=== PATIENT | female | born 1950 | race Caucasian/White ===

== ENCOUNTER 2016-11-23 17:05 | Emergency (ER) | payer MEDICARE, MEDICAID ==
[2016-11-23 17:18] VITALS: BP 179/67
--- NOTE | 2016-11-23 17:39 | EDM.PDOC ---
ED HPI Trauma - General Chief Complaint: Lower Extremity Injury/Pain Stated Complaint: RIGHT LEG PN, HX OF BLOOD CLOTS Time Seen by Provider: 11/23/16 17:39 Source: Reports: Patient History Limitations: Reports: No limitations - History of Present Illness INITIAL COMMENTS - FREE TEXT/NARRATIVE: 66-year-old female presents to the ED for evaluation of pain pills wounds along the medial aspect of her right leg. Patient suffered trauma to the right leg when she got [place] in early [place]. She had hematoma develop mid medial calf. So probably she developed increased pain in the distribution of the greater saphenous vein with velocities in several areas. They have become more painful and swollen over the last few days. She's been wearing a new lead sleeve that was a right behind her knee and and probably is contributing a little bit to were superficial venous drainage. Chest no chest pain cough or sputum production. Symptom Onset Date: 11/20/16 (Has been having problems with the right leg and varicosities since mid-September of this year) Occurred When: other Occurred Where: home Method of Injury: other (Initial [place] when she could not get out to do yourself out in her leg got twisted in an irregular fashion as she fell.) Severity: moderate Pain/Injury Location: Reports: lower extremity, right Associated Symptoms: Reports: no other symptoms, trouble walking (Aware of pain in her right leg at times.). Denies: abdominal pain, chest pain, confusion, dizziness, headache, lightheadedness, muscle spasms, nausea/vomiting, ringing in ears, seizures, shortness of breath, slurred speech Allergies/ADRs: Allergies Sulfa (Sulfonamide Antibiotics) Allergy (Verified 11/23/16 17:21) Not Listed Home Medications: Ambulatory Orders Atenolol 06/19/15 [Confirmed 06/19/15] Zolpidem Tartrate [Ambien] 06/19/15 [Confirmed 06/19/15] clonazePAM [Clonazepam] 06/19/15 [Confirmed 06/19/15] Norethindrone AC-Eth Estradiol [Jinteli 1 MG-5 MCG] 11/23/16 [Confirmed ] Past Medical History Cardiovascular History: Reports: Blood clots/VTE/DVT, Hypertension Other OB/BYN History: ovaries removed Musculoskeletal History: Reports: Fibromyalgia Psychiatric History: Reports: Anxiety Other Endocrine/Metabolic History: parathyroidectomy - Past Surgical History Female Surgical History: Reports: Oophorectomy Social & Family History - Family History Family Medical History: Noncontributory - Tobacco Use Smoking Status *Q: Never Smoker Second Hand Smoke Exposure: No - Recreational Drug Use Recreational Drug Use: No - Living Situation & Occupation Living situation: Reports: single (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 Denies: Shortness of Breath, Wheezing, Pleuritic Chest Pain, Sputum, Hemoptysis GI/Abdominal: Reports: No symptoms, Decreased appetite. Denies: Abdominal pain , Bloody stool, Constipation Genitourinary: Reports: no symptoms Musculoskeletal: Reports: other (Right lower extremity pain particularly medially along the distribution of the greater saphenous vein. Several spots along the leg are painful to touch.) Skin: Reports: no symptoms Neurological: Reports: No Symptoms Psychiatric: Reports: no symptoms Trauma Exam - Physical Exam Exam: See Below Exam Limited By: No limitations General Appearance: Reports: alert, WD/WN, anxious Neck: Reports: non-tender, full range of motion, normal alignment, normal inspection Respiratory Exam: Reports: no respiratory distress, lungs clear, normal breath sounds, no accessory muscle use Cardiovascular: Reports: normal peripheral pulses, regular rate, rhythm, no edema, no gallop, no murmur GI/Abdominal: Reports: normal bowel sounds, soft, non tender, no organomegaly Extremities: Reports: other (Patient has evidence of palpable painful nodules in several areas along the distribution of the greater saphenous vein on the right leg. This is particularly noted medial to the knee and mid right thigh medially pain is increased with swelling the last few days which raised concern for possible developing DVT.) Neurologic: Reports: no motor/sensory deficits, alert, normal mood/affect, oriented x 3 Skin: Reports: Normal color, Warm/dry - Zul[place] Coma Score Best Eye Response (Zulma): (4) open spontaneously Best Verbal Response ([place]): (5) oriented Best Motor Response (Zulma): (6) obeys commands [place] Total: 15 Course - Vital Signs Last Recorded V/S: Last Vital Signs Temp 36.9 C 11/23/16 17:14 Pulse 86 11/23/16 17:14 Resp 18 11/23/16 17:14 BP 179/67 H 11/23/16 17:14 Pulse Ox 98 11/23/16 17:14 - Orders/Labs/Meds Labs: Laboratory Tests 11/23/16 11/23/16 11/23/16 Range/Units 18:13 18:13 18:13 WBC 7.44 (3.98-10.04) K/mm3 RBC 4.46 (3.98-5.22) M/mm3 Hgb 14.1 (11.2-15.7) gm/L Hct 41.3 (34.1-44.9) % MCV 92.6 (79.4-94.8) fl MCH 31.6 (25.6-32.2) pg MCHC 34.1 (32.2-35.5) g/dl RDW Std Deviation 41.9 (36.4-46.3) fL Plt Count 255 (182-369) K/mm3 MPV 10.8 (9.4-12.3) fl Neutrophils % (Manual) 53 (40-60) % Band Neutrophils % 2 (0-10) % Lymphocytes % (Manual) 39 (20-40) % Atypical Lymphs % 0 % Monocytes % (Manual) 3 (2-10) % Eosinophils % (Manual) 3 (0.7-5.8) % Basophils % (Manual) 0 L (0.1-1.2) Platelet Estimate Adequate RBC Morph Comment Normal PT (8.0-13.0) SECONDS INR D-Dimer, Quantitative 0.75 H (0.19-0.59) mg/L Sodium 141 (136-145) mEq/L Potassium 3.5 (3.5-5.1) mEq/L Chloride 105 (98-107) mEq/L Carbon Dioxide 28 (21-32) mEq/L Anion Gap 11.5 (5-15) BUN 18 (7-18) mg/dL Creatinine 0.7 (0.55-1.02) mg/dL Est Cr Clr Drug Dosing TNP Estimated GFR (MDRD) > 60 (>60) mL/min BUN/Creatinine Ratio 25.7 H (14-18) Glucose 138 H (80-115) mg/dL Calcium 8.9 (8.5-10.1) mg/dL Total Bilirubin 1.1 H (0.2-1.0) mg/dL AST 15 (15-37) U/L ALT 30 (14-59) U/L Alkaline Phosphatase 63 (46-116) U/L C-Reactive Protein < 0.2 (<1.0) mg/dL Total Protein 7.0 (6.4-8.2) g/dl Albumin 3.8 (3.4-5.0) g/dl Globulin 3.2 gm/dL Albumin/Globulin Ratio 1.2 (1-2) / Range/Units 18:13 WBC (3.98-10.04) K/mm3 RBC (3.98-5.22) M/mm3 Hgb (11.2-15.7) gm/L Hct (34.1-44.9) % MCV (79.4-94.8) fl MCH (25.6-32.2) pg MCHC (32.2-35.5) g/dl RDW Std Deviation (36.4-46.3) fL Plt Count (182-369) K/mm3 MPV (9.4-12.3) fl Neutrophils % (Manual) (40-60) % Band Neutrophils % (0-10) % Lymphocytes % (Manual) (20-40) % Atypical Lymphs % % Monocytes % (Manual) (2-10) % Eosinophils % (Manual) (0.7-5.8) % Basophils % (Manual) (0.1-1.2) Platelet Estimate RBC Morph Comment PT 10.1 (8.0-13.0) SECONDS INR 0.93 D-Dimer, Quantitative (0.19-0.59) mg/L Sodium (136-145) mEq/L Potassium (3.5-5.1) mEq/L Chloride (98-107) mEq/L Carbon Dioxide (21-32) mEq/L Anion Gap (5-15) BUN (7-18) mg/dL Creatinine (0.55-1.02) mg/dL Est Cr Clr Drug Dosing Estimated GFR (MDRD) (>60) mL/min BUN/Creatinine Ratio (14-18) Glucose (80-115) mg/dL Calcium (8.5-10.1) mg/dL Total Bilirubin (0.2-1.0) mg/dL AST (15-37) U/L ALT (14-59) U/L Alkaline Phosphatase (46-116) U/L C-Reactive Protein (<1.0) mg/dL Total Protein (6.4-8.2) g/dl Albumin (3.4-5.0) g/dl Globulin gm/dL Albumin/Globulin Ratio (1-2) - Radiology Interpretation Free Text/Narrative:: 66-year-old female presents the ED for evaluation of increasing pain and swelling along the greater saphenous vein distribution in her right leg. Most recently she had some trauma to the leg which seemed to exacerbate signs of symptoms of varicosities and superficial phlebitis along the greater saphenous vein on the right side. She's never been confirmed to have a deep venous thrombosis. She is currently on aspirin 325 mg daily. She has been wearing compression stockings but they've been below the knee and maybe and contributing to some of the sluggishness of blood flow in the medial aspect of the leg. She has no chest symptoms to suggest PE. Examination confirms multiple varicosities and nodules along the distribution of the greater saphenous vein which are quite tender to touch. I suspect she has a fairly extensive superficial thrombophlebitis. We will have ultrasound done to be sure that there is no deep venous thrombosis is approximately 1/3 of these can go on to produce a DVT. Of note she has also identified recently that she has a Von Leiden factor mutation which makes her much more prone to clotting.. routine labs will be done including a PT/INR today she is on Coumadin. D-dimer to be done as well. - Re-Assessments/Exams Free Text/Narrative Re-Assessment/Exam: 11/23/16 19:14 lab work shows a white count of 7.44 with hemoglobin 14.1 hematocrit 41.3. PT was 10.1 INR 0.93 d-dimer is mildly elevated at 0.75. Sodium 141 potassium 3.5 cortical 5 bicarbonate 28 anion gap is 11.5 glucose 138 total bili 1.1. Doppler ultrasound has been completed and reveals no further clot within the major saphenous vein. Just numerous varicosities. The previous noted area of clot in the calf is looking old and certainly has not propagated or drink gotten larger. This leaves us in a bit of a double-lumen terms of she has no who DVT history has a job lined factor mutation which places her at risk. She has a lot of discomfort and pain in the distribution of the greater saphenous vein and probably would benefit from venous stripping in this area which would alleviate her pain and discomfort. The question comes as to what to leave her on for anticoagulants. The safest thing would just be 325 mg of aspirin once a day. A consultation with a roller billet mill may be useful in this regard. There is low risk of injury or bleeding when she has not had a true DVT in the past. Discussed these options with her. I suggested followup with a vascular surgeon who specializes in varicose pain management. She will take this under advisement. Departure - Departure Time of Disposition: 20:15 Disposition: Home, Self-Care 01 Condition: fair Clinical Impression: Right leg pain, Varicose veins of right lower extremity with pain Instructions: Varicose Veins Referrals: Jenelle Fuller [employer]IOR [employer]ICIAN [Primary Care Provider] - Forms: ED Department Discharge Additional Instructions: ED HPI Trauma - General Chief Complaint: Lower Extremity Injury/Pain Stated Complaint: RIGHT LEG PN, HX OF BLOOD CLOTS Time Seen by Provider: 11/23/16 17:39 Source: Reports: Patient History Limitations: Reports: No limitations - History of Present Illness INITIAL COMMENTS - FREE TEXT/NARRATIVE: 66-year-old female presents to the ED for evaluation of pain pills wounds along the medial aspect of her right leg. Patient suffered trauma to the right leg when she got stuck in [facility] in early September. She had hematoma develop mid medial calf. So probably she developed increased pain in the distribution of the greater saphenous vein with velocities in several areas. They have become more painful and swollen over the last few days. She's been wearing a new lead sleeve that was a right behind her knee and and probably is contributing a little bit to were superficial venous drainage. Chest no chest pain cough or sputum production. Symptom Onset Date: 11/20/16 (Has been having problems with the right leg and varicosities since mid-September of this year) Occurred When: other Occurred Where: home Method of Injury: other (Initial injury was getting stuck in [place] [facility] when she could not get out to do yourself out in her leg got twisted in an irregular fashion as she fell.) Severity: moderate Pain/Injury Location: Reports: lower extremity, right Associated Symptoms: Reports: no other symptoms, trouble walking (Aware of pain in her right leg at times.). Denies: abdominal pain, chest pain, confusion, dizziness, headache, lightheadedness, muscle spasms, nausea/vomiting, ringing in ears, seizures, shortness of breath, slurred speech Allergies/ADRs: Allergies Sulfa (Sulfonamide Antibiotics) Allergy (Verified 11/23/16 17:21) Not Listed Home Medications: Ambulatory Orders Atenolol 06/19/15 [Confirmed 06/19/15] Zolpidem Tartrate [Ambien] 06/19/15 [Confirmed 06/19/15] clonazePAM [Clonazepam] 06/19/15 [Confirmed 06/19/15] Norethindrone AC-Eth Estradiol [Jinteli 1 MG-5 MCG] 11/23/16 [Confirmed ] Past Medical History Cardiovascular History: Reports: Blood clots/VTE/DVT, Hypertension Other OB/BYN History: ovaries removed Musculoskeletal History: Reports: Fibromyalgia Psychiatric History: Reports: Anxiety Other Endocrine/Metabolic History: parathyroidectomy - Past Surgical History Female Surgical History: Reports: Oophorectomy Social & Family History - Family History Family Medical History: Noncontributory - Tobacco Use Smoking Status *Q: Never Smoker Second Hand Smoke Exposure: No - Recreational Drug Use Recreational Drug Use: No - Living Situation & Occupation Living situation: Reports: single (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 Denies: Shortness of Breath, Wheezing, Pleuritic Chest Pain, Sputum, Hemoptysis GI/Abdominal: Reports: No symptoms, Decreased appetite. Denies: Abdominal pain , Bloody stool, Constipation Genitourinary: Reports: no symptoms Musculoskeletal: Reports: other (Right lower extremity pain particularly medially along the distribution of the greater saphenous vein. Several spots along the leg are painful to touch.) Skin: Reports: no symptoms Neurological: Reports: No Symptoms Psychiatric: Reports: no symptoms Trauma Exam - Physical Exam Exam: See Below Exam Limited By: No limitations General Appearance: Reports: alert, WD/WN, anxious Neck: Reports: non-tender, full range of motion, normal alignment, normal inspection Respiratory Exam: Reports: no respiratory distress, lungs clear, normal breath sounds, no accessory muscle use Cardiovascular: Reports: normal peripheral pulses, regular rate, rhythm, no edema, no gallop, no murmur GI/Abdominal: Reports: normal bowel sounds, soft, non tender, no organomegaly Extremities: Reports: other (Patient has evidence of palpable painful nodules in several areas along the distribution of the greater saphenous vein on the right leg. This is particularly noted medial to the knee and mid right thigh medially pain is increased with swelling the last few days which raised concern for possible developing DVT.) Neurologic: Reports: no motor/sensory deficits, alert, normal mood/affect, oriented x 3 Skin: Reports: Normal color, Warm/dry - Zulma Coma Score Best Eye Response (Zulma): (4) open spontaneously Best Verbal Response ([place]): (5) oriented Best Motor Response (Zulma): (6) obeys commands [place] Total: 15 Course - Vital Signs Last Recorded V/S: Last Vital Signs Temp 36.9 C 11/23/16 17:14 Pulse 86 11/23/16 17:14 Resp 18 11/23/16 17:14 BP 179/67 H 11/23/16 17:14 Pulse Ox 98 11/23/16 17:14 - Orders/Labs/Meds Orders: Active Orders 24 hr Category Date Time Status VL Duplex Lwr Ext Veins Ltd Rt [US] Stat Exams 11/23/16 18:00 Taken Labs: Laboratory Tests 11/23/16 11/23/16 11/23/16 Range/Units 18:13 18:13 18:13 WBC 7.44 (3.98-10.04) K/mm3 RBC 4.46 (3.98-5.22) M/mm3 Hgb 14.1 (11.2-15.7) gm/L Hct 41.3 (34.1-44.9) % MCV 92.6 (79.4-94.8) fl MCH 31.6 (25.6-32.2) pg MCHC 34.1 (32.2-35.5) g/dl RDW Std Deviation 41.9 (36.4-46.3) fL Plt Count 255 (182-369) K/mm3 MPV 10.8 (9.4-12.3) fl Neutrophils % (Manual) 53 (40-60) % Band Neutrophils % 2 (0-10) % Lymphocytes % (Manual) 39 (20-40) % Atypical Lymphs % 0 % Monocytes % (Manual) 3 (2-10) % Eosinophils % (Manual) 3 (0.7-5.8) % Basophils % (Manual) 0 L (0.1-1.2) Platelet Estimate Adequate RBC Morph Comment Normal PT (8.0-13.0) SECONDS INR D-Dimer, Quantitative 0.75 H (0.19-0.59) mg/L Sodium 141 (136-145) mEq/L Potassium 3.5 (3.5-5.1) mEq/L Chloride 105 (98-107) mEq/L Carbon Dioxide 28 (21-32) mEq/L Anion Gap 11.5 (5-15) BUN 18 (7-18) mg/dL Creatinine 0.7 (0.55-1.02) mg/dL Est Cr Clr Drug Dosing TNP Estimated GFR (MDRD) > 60 (>60) mL/min BUN/Creatinine Ratio 25.7 H (14-18) Glucose 138 H (80-115) mg/dL Calcium 8.9 (8.5-10.1) mg/dL Total Bilirubin 1.1 H (0.2-1.0) mg/dL AST 15 (15-37) U/L ALT 30 (14-59) U/L Alkaline Phosphatase 63 (46-116) U/L C-Reactive Protein < 0.2 (<1.0) mg/dL Total Protein 7.0 (6.4-8.2) g/dl Albumin 3.8 (3.4-5.0) g/dl Globulin 3.2 gm/dL Albumin/Globulin Ratio 1.2 (1-2) 11/23/16 Range/Units 18:13 WBC (3.98-10.04) K/mm3 RBC (3.98-5.22) M/mm3 Hgb (11.2-15.7) gm/L Hct (34.1-44.9) % MCV (79.4-94.8) fl MCH (25.6-32.2) pg MCHC (32.2-35.5) g/dl RDW Std Deviation (36.4-46.3) fL Plt Count (182-369) K/mm3 MPV (9.4-12.3) fl Neutrophils % (Manual) (40-60) % Band Neutrophils % (0-10) % Lymphocytes % (Manual) (20-40) % Atypical Lymphs % % Monocytes % (Manual) (2-10) % Eosinophils % (Manual) (0.7-5.8) % Basophils % (Manual) (0.1-1.2) Platelet Estimate RBC Morph Comment PT 10.1 (8.0-13.0) SECONDS INR 0.93 D-Dimer, Quantitative (0.19-0.59) mg/L Sodium (136-145) mEq/L Potassium (3.5-5.1) mEq/L Chloride (98-107) mEq/L Carbon Dioxide (21-32) mEq/L Anion Gap (5-15) BUN (7-18) mg/dL Creatinine (0.55-1.02) mg/dL Est Cr Clr Drug Dosing Estimated GFR (MDRD) (>60) mL/min BUN/Creatinine Ratio (14-18) Glucose (80-115) mg/dL Calcium (8.5-10.1) mg/dL Total Bilirubin (0.2-1.0) mg/dL AST (15-37) U/L ALT (14-59) U/L Alkaline Phosphatase (46-116) U/L C-Reactive Protein (<1.0) mg/dL Total Protein (6.4-8.2) g/dl Albumin (3.4-5.0) g/dl Globulin gm/dL Albumin/Globulin Ratio (1-2) - Radiology Interpretation Free Text/Narrative:: 66-year-old female presents the ED for evaluation of increasing pain and swelling along the greater saphenous vein distribution in her right leg. Most recently she had some trauma to the leg which seemed to exacerbate signs of symptoms of varicosities and superficial phlebitis along the greater saphenous vein on the right side. She's never been confirmed to have a deep venous thrombosis. She is currently on aspirin 325 mg daily. She has been wearing compression stockings but they've been below the knee and maybe and contributing to some of the sluggishness of blood flow in the medial aspect of the leg. She has no chest symptoms to suggest PE. Examination confirms multiple varicosities and nodules along the distribution of the greater saphenous vein which are quite tender to touch. I suspect she has a fairly extensive superficial thrombophlebitis. We will have ultrasound done to be sure that there is no deep venous thrombosis is approximately 1/3 of these can go on to produce a DVT. Of note she has also identified recently that she has a Von Leiden factor mutation which makes her much more prone to clotting.. routine labs will be done including a PT/INR today she is on Coumadin. D-dimer to be done as well. - Re-Assessments/Exams Free Text/Narrative Re-Assessment/Exam: 11/23/16 19:14 lab work shows a white count of 7.44 with hemoglobin 14.1 hematocrit 41.3. PT was 10.1 INR 0.93 d-dimer is mildly elevated at 0.75. Sodium 141 potassium 3.5 cortical 5 bicarbonate 28 anion gap is 11.5 glucose 138 total bili 1.1. Doppler ultrasound has been completed and reveals no further clot within the major saphenous vein. Just numerous varicosities. The previous noted area of clot in the calf is looking old and certainly has not propagated or drink gotten larger. This leaves us in a bit of a double-lumen terms of she has no who DVT history has a job lined factor mutation which places her at risk. She has a lot of discomfort and pain in the distribution of the greater saphenous vein and probably would benefit from venous stripping in this area which would alleviate her pain and discomfort. The question comes as to what to leave her on for anticoagulants. The safest thing would just be 325 mg of aspirin once a day. A consultation with a roller billet mill may be useful in this regard. There is low risk of injury or bleeding when she has not had a true DVT in the past. Departure - Departure Disposition: Home, Self-Care 01 Condition: fair Clinical Impression: Right leg pain, Varicose veins of right lower extremity with pain Forms: ED Department Discharge - My Orders Last 24 Hours: My Active Orders 11/23/16 18:00 VL Duplex Lwr Ext Veins Ltd Rt [US] Stat - Assessment/Plan Last 24 Hours: My Active Orders 11/23/16 18:00 VL Duplex Lwr Ext Veins Ltd Rt [US] Stat Evaluation the resume today was carried out due to to increased pain in the distribution of the greater saphenous vein on the right leg. A couple areas along the vein seemed to be quite tender to touch suggesting underlying clotting. It is quite evident there are varicosities along the entire distribution of the vein. Doppler ultrasound was performed again and reveals only the initial area of thrombus in the mid medial calf. There is no signs that it is gotten larger in fact it is shrinking. Therefore I my suggestion would be to give strong consideration to having a very close vein stripped in the leg to relieve your pain. Surgical literature in regards to mentation upon light and factor without a history of deep venous thrombosis suggest that the safest alternative is to stay simply on 325 mg of aspirin daily. Other stronger anticoagulants are not indicated if you never had a deep venous thrombosis. They carry risks of bleeding elsewhere.
--- NOTE | 2016-11-23 19:59 | US ---
Right lower extremity deep venous ultrasound: Duplex and color flow imaging was obtained of the right common femoral, greater saphenous, superficial femoral, popliteal, posterior tibial and peroneal veins. Comparison: Previous right lower extremity ultrasound of 09/24/16. Deep veins show normal phasic flow, augmentation and compression. Superficial vein possibly due to greater saphenous vein or other superficial vein shows what appears to be chronic clot which is similar to previous study. Nothing seen to indicate acute clot within the superficial vessels. Impression: 1. Superficial vein below the knee showing increased echoes likely representing chronic clot as it is stable from previous exam. 2. No acute deep venous thrombosis is seen. Diagnostic code #3
== END 2016-11-23 20:28 | disposition home or self-care (01) ==
LOC: JD.ED 17:05
DX: I83.811 Varicose veins of right lower extremity with pain (principal); I10 Essential (primary) hypertension; F41.9 Anxiety disorder, unspecified; Z88.2 Allergy status to sulfonamides
CPT/HCPCS: 36415; 80053; 85025; 85379; 85610; 86140; 93971-26-RT; 93971-RT; 99283; 99284-25

== ENCOUNTER 2017-02-01 11:55 | Emergency (ER) | payer MEDICARE, MEDICAID ==
[2017-02-01 12:20] VITALS: BP 147/93
--- NOTE | 2017-02-01 13:08 | EDM.PDOC ---
ED HPI GENERAL MEDICAL PROBLEM - General Chief Complaint: Bite:Animal, Insect Stated Complaint: TICK EMBEDDED IN HEAD/FEELING SICK Time Seen by Provider: 02/01/17 12:16 Source of Information: Reports: Patient History Limitations: Reports: No Limitations - History of Present Illness INITIAL COMMENTS - FREE TEXT/NARRATIVE: The patient presents with a tick to the back of her head. She also did not feel well. She has some nausea, dizziness and some neck pain. She does not have a fever or chills. She has no cough or chest pain. Onset: Gradual Duration: Hour(s): Location: Reports: Neck Quality: Reports: Sharp Severity: Moderate Improves with: Reports: None Worsens with: Reports: None Associated Symptoms: Reports: No Other Symptoms Treatments BRIEFCASE SEWER: Reports: Other (see below) Other Treatments BRIEFCASE SEWER: butter Left Shoulder Pain Score (Numeric/FACES): 10 - Related Data Allergies Allergy/AdvReac Type Severity Reaction Status Date / Time Sulfa (Sulfonamide Allergy Not Listed Verified 02/01/17 12:20 Antibiotics) Home Meds: Home Meds Atenolol 25 mg PO BID 06/19/15 [History] Zolpidem Tartrate [Ambien] 5 mg PO DAILY 06/19/15 [History] clonazePAM [Clonazepam] 0.125 mg PO DAILY 06/19/15 [History] Norethindrone AC-Eth Estradiol [Jinteli 1 MG-5 MCG] 1 each PO DAILY 11/23/16 [ History] Past Medical History Cardiovascular History: Reports: Blood Clots/VTE/DVT, Hypertension Other OB/BYN History: ovaries removed Musculoskeletal History: Reports: Fibromyalgia Psychiatric History: Reports: Anxiety Other Endocrine/Metabolic History: parathyroidectomy - Past Surgical History Female Surgical History: Reports: Oophorectomy Social & Family History - Family History Family Medical History: Noncontributory - Tobacco Use Smoking Status *Q: Never Smoker Second Hand Smoke Exposure: No - Caffeine Use Caffeine Use: Reports: Coffee - Recreational Drug Use Recreational Drug Use: No - Living Situation & Occupation Living situation: Reports: Single ED ROS GENERAL - Review of Systems Review Of Systems: See Below Constitutional: Reports: No Symptoms HEENT: Reports: No Symptoms Respiratory: Reports: No Symptoms Cardiovascular: Reports: No Symptoms Endocrine: Reports: No Symptoms GI/Abdominal: Reports: Nausea. Denies: Abdominal Pain, Vomiting : Reports: No Symptoms Musculoskeletal: Reports: No Symptoms Skin: Reports: No Symptoms Neurological: Reports: Other (neck pain) ED EXAM, ANIMAL BITE - Physical Exam Exam: See Below Exam Limited By: No Limitations General Appearance: Alert, No Apparent Distress Ears: Normal External Exam Nose: Normal Inspection Head: Atraumatic, Normocephalic Neck: Other (Mild pain upon palpation to the left lateral neck) Respiratory/Chest: No Respiratory Distress, Lungs Clear, Normal Breath Sounds Cardiovascular: Regular Rate, Rhythm, No Edema, No Murmur GI/Abdominal: Soft, Non-Tender, No Organomegaly, No Mass Back Exam: Normal Inspection Extremities: Normal Inspection Course - Vital Signs Last Recorded V/S: Last Vital Signs Temp 98.5 F 02/01/17 12:19 Pulse 76 02/01/17 12:19 Resp 18 02/01/17 12:19 BP 147/93 H 02/01/17 12:19 Pulse Ox 97 02/01/17 12:19 - Orders/Labs/Meds Orders: Active Orders 24 hr Category Date Time Status LYME/B.BURGDORFERI IGG/IGM [REF] Stat Lab 02/01/17 12:46 Received - Re-Assessments/Exams Free Text/Narrative Re-Assessment/Exam: 02/01/17 13:06 I will get a lyme disease test. The tick was not engorged. I feel it is low probability. Departure - Departure Time of Disposition: 13:10 Disposition: Home, Self-Care 01 Condition: good Clinical Impression: Neck pain Tick bite Qualifiers: Encounter type: initial encounter Qualified Code(s): W57.XXXA - Bitten or stung by nonvenomous insect and other nonvenomous arthropods, initial encounter - Discharge Information Referrals: Jenelle Fuller, FLOOR COVERER [Primary Care Provider] - 1 Week Forms: ED Department Discharge Additional Instructions: Take tylenol or motrin for pain. We should have results back in about a week to 10 days. Please return if you are worse. - My Orders Last 24 Hours: My Active Orders 02/01/17 12:46 LYME/B.BURGDORFERI IGG/IGM [REF] Stat - Assessment/Plan Last 24 Hours: My Active Orders 02/01/17 12:46 LYME/B.BURGDORFERI IGG/IGM [REF] Stat
== END 2017-02-01 13:15 | disposition home or self-care (01) ==
LOC: JD.ED 11:55
DX: S10.86XA Insect bite of other specified part of neck, initial encounter (principal); W57.XXXA Bitten or stung by nonvenomous insect and other nonvenomous arthropods, initial encounter; I10 Essential (primary) hypertension; F41.9 Anxiety disorder, unspecified; Z86.718 Personal history of other venous thrombosis and embolism; Z79.899 Other long term (current) drug therapy; Z88.2 Allergy status to sulfonamides
CPT/HCPCS: 36415; 86618; 99282

== ENCOUNTER 2018-05-01 12:32 | Emergency (ER) | payer MEDICARE, MEDICAID ==
[2018-05-01 12:51] VITALS: BP 189/74
[2018-05-01] MEDS ORDERED: Ibuprofen 600 MG Tab PO ONE (13:18)
[2018-05-01] MEDS ORDERED: Acetaminophen/HYDROcodone 325-5 MG Tab PO ONE (13:18)
--- NOTE | 2018-05-01 13:24 | EDM.PDOC ---
ED HPI GENERAL MEDICAL PROBLEM - General Chief Complaint: Lower Extremity Injury/Pain Stated Complaint: RIGHT LEG PAIN Time Seen by Provider: 05/01/18 13:00 Source of Information: Reports: Patient, Old Records (Nateit November,) History Limitations: Reports: No Limitations - History of Present Illness INITIAL COMMENTS - FREE TEXT/NARRATIVE: 68-year-old female presents for evaluation and treatment of right medial leg pain. Patient has a history of DVT. She reports an injury several years ago which caused the DVT. She is currently on 325 mg aspirin daily. She took an extra aspirin last night and again this morning. Patient reports yesterday she was walking around her rigors with some new s that were high platform shoes. She reports she developed pain to the right medial leg she is previously had a clot and she became concerned she has a clot. She also appreciated area of redness to this area. No lightheadedness, syncope, chest pain or shortness of breath. Treatments CASE SUPERVISOR: Reports: Other (see below) Right Lower Leg Pain Score (Numeric/FACES): 10 - Related Data Allergies Allergy/AdvReac Type Severity Reaction Status Date / Time Sulfa (Sulfonamide Allergy Not Listed Verified 02/01/17 12:20 Antibiotics) Home Meds: Home Meds Atenolol 50 mg PO BID 06/19/15 [History] Zolpidem Tartrate [Ambien] 5 mg PO DAILY 06/19/15 [History] clonazePAM [Clonazepam] 0.125 mg PO DAILY 06/19/15 [History] Norethindrone AC-Eth Estradiol [Jinteli 1 MG-5 MCG] 1 each PO DAILY 11/23/16 [ History] Aspirin [Ecotrin] 325 mg PO DAILY 05/01/18 [History] Lisinopril 10 mg PO DAILY 05/01/18 [History] Past Medical History Cardiovascular History: Reports: Blood Clots/VTE/DVT, Hypertension 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 Musculoskeletal History: Reports: Fibromyalgia Psychiatric History: Reports: Anxiety Other Endocrine/Metabolic History: parathyroidectomy - Past Surgical History Female Surgical History: Reports: Oophorectomy Social & Family History - Family History Family Medical History: Noncontributory - Tobacco Use Smoking Status *Q: Never Smoker - Caffeine Use Caffeine Use: Reports: Coffee - Recreational Drug Use Recreational Drug Use: No - Living Situation & Occupation Living situation: Reports: Single Review of Systems - Review of Systems Review Of Systems: See Below ED EXAM, GENERAL - Physical Exam Exam: See Below Exam Limited By: No Limitations General Appearance: Alert, WD/WN, No Apparent Distress, Anxious Course - Vital Signs Last Recorded V/S: Last Vital Signs Temp 97.9 F 05/01/18 12:49 Pulse 64 05/01/18 12:49 Resp 20 05/01/18 12:49 BP 189/74 H 05/01/18 12:49 Pulse Ox 100 05/01/18 12:49 - Orders/Labs/Meds Labs: Laboratory Tests 05/01/18 05/01/18 05/01/18 Range/Units 13:25 13:25 13:25 WBC 6.72 (3.98-10.04) K/mm3 RBC 4.37 (3.98-5.22) M/mm3 Hgb 13.8 (11.2-15.7) gm/L Hct 40.6 (34.1-44.9) % MCV 92.9 (79.4-94.8) fl MCH 31.6 (25.6-32.2) pg MCHC 34.0 (32.2-35.5) g/dl RDW Std Deviation 42.4 (36.4-46.3) fL Plt Count 224 (182-369) K/mm3 MPV 11.4 (9.4-12.3) fl Neut % (Auto) 50.9 (34.0-71.1) % Lymph % (Auto) 35.7 (19.3-51.7) % [place] % (Auto) 8.5 (4.7-12.5) % Eos % (Auto) 4.5 (0.7-5.8) Baso % (Auto) 0.3 (0.1-1.2) % Neut # (Auto) 3.42 (1.56-6.13) K/mm3 Lymph # (Auto) 2.40 (1.18-3.74) K/mm3 [place] # (Auto) 0.57 H (0.24-0.36) K/mm3 Eos # (Auto) 0.30 (0.04-0.36) K/mm3 Baso # (Auto) 0.02 (0.01-0.08) K/mm3 PT 10.3 (9.5-12.1) SECONDS INR 0.94 Sodium 142 (136-145) mEq/L Potassium 3.9 (3.5-5.1) mEq/L Chloride 106 (98-107) mEq/L Carbon Dioxide 26 (21-32) mEq/L Anion Gap 13.9 (5-15) BUN 13 (7-18) mg/dL Creatinine 0.8 (0.55-1.02) mg/dL Est Cr Clr Drug Dosing 61.26 mL/min Estimated GFR (MDRD) > 60 (>60) mL/min BUN/Creatinine Ratio 16.3 (14-18) Glucose 147 H (80-115) mg/dL Calcium 8.8 (8.5-10.1) mg/dL Total Bilirubin 1.0 (0.2-1.0) mg/dL AST 18 (15-37) U/L ALT 21 (14-59) U/L Alkaline Phosphatase 75 (46-116) U/L Total Protein 7.2 (6.4-8.2) g/dl Albumin 3.5 (3.4-5.0) g/dl Globulin 3.7 gm/dL Albumin/Globulin Ratio 1.0 (1-2) Meds: Medications Discontinued Medications Generic Name Dose Route Start Last Admin Trade Name Freq PRN Reason Stop Dose Admin Hydrocodone Bitart/Acetaminophen 1 tab 05/01/18 13:18 05/01/18 14:25 [place] 325-5 Mg PO 05/01/18 13:19 Not Given ONETIME ONE Ibuprofen 600 mg 05/01/18 13:18 05/01/18 13:21 Motrin PO 05/01/18 13:19 600 mg ONETIME ONE Administration - Radiology Interpretation Free Text/Narrative:: Right leg ultrasound impression per [facility]: A partially thrombosed superficial varicosity in the posterior calf in the area of pain and discoloration. No DVT. - Re-Assessments/Exams Free Text/Narrative Re-Assessment/Exam: 05/01/18 15:01 Reviewed the labs and imaging with the patient. Recommend continuing on aspirin daily. She did not like the compression stockings. Follow-up with primary care. Discharge instructions as documented. Departure - Departure Time of Disposition: 15:01 Disposition: Home, Self-Care 01 Condition: Fair Clinical Impression: Varicose veins of right lower extremity with pain, Phlebitis - Discharge Information Instructions: Varicose Veins, Phlebitis, [id number] Referrals: Jenelle Fuller SEWER PIPE OFFBEARER [Primary Care Provider] - Forms: ED Department Discharge Additional Instructions: Continue with the aspirin daily as prescribed. Follow up with your primary care provider as needed. Please return to the ER if your symptoms change or worsen.
--- NOTE | 2018-05-02 13:19 | US ---
Right lower extremity deep venous ultrasound: Duplex and color flow imaging was obtained of the right common femoral, proximal greater saphenous, superficial femoral, popliteal, posterior tibial and peroneal veins. Left common femoral vein was also evaluated. Findings: Superficial varicosity shows evidence of thrombosis within the posterior right calf. This is compatible with superficial thrombophlebitis. Deep veins show normal phasic flow, augmentation and compression. Impression: 1. Findings compatible with superficial thrombophlebitis within the right posterior calf. 2. No evidence of deep venous thrombosis is seen within the right lower extremity. Diagnostic code #3 I agree with preliminary report from [facility], finalized at 05/01/18, 3:30 PM Central Time
== END 2018-05-01 15:05 | disposition home or self-care (01) ==
LOC: JD.ED 12:32
DX: I83.811 Varicose veins of right lower extremity with pain (principal); I80.9 Phlebitis and thrombophlebitis of unspecified site; F41.9 Anxiety disorder, unspecified; I10 Essential (primary) hypertension; Z88.2 Allergy status to sulfonamides; Z79.899 Other long term (current) drug therapy; Z79.82 Long term (current) use of aspirin
CPT/HCPCS: 36415; 80053; 85025; 85610; 93971; 99284; A9270

== ENCOUNTER 2018-10-08 16:01 | Emergency (ER) | payer MEDICARE, MEDICAID ==
--- NOTE | 2018-10-08 18:15 | EDM.PDOC ---
ED HPI GENERAL MEDICAL PROBLEM - General Chief Complaint: Skin Complaint Stated Complaint: LUMP IN THROAT IS GROWING RAPIDLY Time Seen by Provider: 10/08/18 16:31 Source of Information: Reports: Patient, RN Notes Reviewed - History of Present Illness INITIAL COMMENTS - FREE TEXT/NARRATIVE: 68-year-old female noticed an area of swelling right anterior neck yesterday. She feels that the area is "larger today. 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 She was airlifted to a [facility] and was in the hospital for about 9 days. She states that she had an endotracheal tube for about 2 days. The angioedema was secondary to an RUI inhibitor that she was on. She has been suffering with severe stress and anxiety since that incident. She she does have some mild discomfort swallowing that has been here since her airway difficulties and cricothyroidotomy 2 months ago. That has not worsened in any way. She has no breathing difficulty today. She has no other area of rash or swelling. - Related Data Allergies Allergy/AdvReac Type Severity Reaction Status Date / Time RUI Inhibitors Allergy Swollen Verified 10/08/18 16:25 Tongue Sulfa (Sulfonamide Allergy Not Listed Verified 10/08/18 16:25 Antibiotics) Home Meds: Home Meds Atenolol 50 mg PO BID 06/19/15 [History] Zolpidem Tartrate [Ambien] 5 mg PO DAILY 06/19/15 [History] clonazePAM [Clonazepam] 0.125 mg PO DAILY 06/19/15 [History] Norethindrone AC-Eth Estradiol [Jinteli 1 MG-5 MCG] 1 each PO DAILY 11/23/16 [ History] Aspirin [Ecotrin] 325 mg PO DAILY 05/01/18 [History] Lisinopril 10 mg PO DAILY 05/01/18 [History] Past Medical History Cardiovascular History: Reports: Blood Clots/VTE/DVT, Hypertension 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 Musculoskeletal History: Reports: Fibromyalgia Psychiatric History: Reports: Anxiety Other Endocrine/Metabolic History: parathyroidectomy - Past Surgical History Respiratory Surgical History: Reports: Tracheostomy Female Surgical History: Reports: Oophorectomy Social & Family History - Family History Family Medical History: Noncontributory - Tobacco Use Smoking Status *Q: Never Smoker Second Hand Smoke Exposure: No - Caffeine Use Caffeine Use: Reports: None - Recreational Drug Use Recreational Drug Use: No - Living Situation & Occupation Living situation: Reports: Single ED ROS GENERAL - Review of Systems Review Of Systems: See Below Constitutional: Denies: Fever, Chills HEENT: Reports: Other. Denies: Sinus Problem, Throat Pain (She is aware of a small area of swelling right anterior neck), Throat Swelling Respiratory: Denies: Shortness of Breath, Wheezing, Cough Cardiovascular: Denies: Chest Pain GI/Abdominal: Denies: Abdominal Pain, Nausea, Vomiting Musculoskeletal: Denies: Shoulder Pain, Arm Pain Skin: Denies: Rash Neurological: Reports: No Symptoms ED EXAM, SKIN/RASH Exam: See Below General Appearance: Alert, Anxious Eye Exam: Bilateral Eye: PERRL Throat/Mouth: Normal Inspection, Normal Oropharynx Neck: Other (She does have a small nodule palpable right anterior neck, very mildly tender, not red or warm, no palpable soft tissue swelling at this time) Respiratory/Chest: No Respiratory Distress, Lungs Clear, Normal Breath Sounds Cardiovascular: Regular Rate, Rhythm Neurological: Alert, Oriented, No Motor/Sensory Deficits Psychiatric: Anxious Skin: Warm, Dry, Normal Color, No Rash Course - Vital Signs Last Recorded V/S: Last Vital Signs Temp 98.6 F 10/08/18 16:22 Pulse 79 10/08/18 16:22 Resp 18 10/08/18 16:22 BP 184/90 H 10/08/18 16:22 Pulse Ox 99 10/08/18 16:22 - Orders/Labs/Meds Orders: Active Orders 24 hr Category Date Time Status Soft Tissue Neck w Cont [CT] Stat Exams 10/08/18 16:54 Stop Req Labs: Laboratory Tests 10/08/18 10/08/18 Range/Units 17:05 17:05 WBC 6.84 (3.98-10.04) K/mm3 RBC 4.45 (3.98-5.22) M/mm3 Hgb 14.0 (11.2-15.7) gm/L Hct 41.6 (34.1-44.9) % MCV 93.5 (79.4-94.8) fl MCH 31.5 (25.6-32.2) pg MCHC 33.7 (32.2-35.5) g/dl RDW Std Deviation 41.1 (36.4-46.3) fL Plt Count 256 (182-369) K/mm3 MPV 11.1 (9.4-12.3) fl Neutrophils % (Manual) 49 (40-60) % Band Neutrophils % 0 (0-10) % Lymphocytes % (Manual) 45 H (20-40) % Atypical Lymphs % 0 % Monocytes % (Manual) 2 (2-10) % Eosinophils % (Manual) 4 (0.7-5.8) % Basophils % (Manual) 0 L (0.1-1.2) Platelet Estimate Adequate Plt Morphology Comment Normal RBC Morph Comment Normal Sodium 143 (136-145) mEq/L Potassium 3.9 (3.5-5.1) mEq/L Chloride 108 H (98-107) mEq/L Carbon Dioxide 26 (21-32) mEq/L Anion Gap 12.9 (5-15) BUN 20 H (7-18) mg/dL Creatinine 0.9 (0.55-1.02) mg/dL Est Cr Clr Drug Dosing 54.45 mL/min Estimated GFR (MDRD) > 60 (>60) mL/min BUN/Creatinine Ratio 22.2 H (14-18) Glucose 171 H (80-115) mg/dL Calcium 8.9 (8.5-10.1) mg/dL Total Bilirubin 0.7 (0.2-1.0) mg/dL AST 14 L (15-37) U/L ALT 22 (14-59) U/L Alkaline Phosphatase 78 (46-116) U/L C-Reactive Protein 0.7 (<1.0) mg/dL Total Protein 7.1 (6.4-8.2) g/dl Albumin 3.5 (3.4-5.0) g/dl Globulin 3.6 gm/dL Albumin/Globulin Ratio 1.0 (1-2) - Re-Assessments/Exams Free Text/Narrative Re-Assessment/Exam: 10/08/18 18:23 White blood count, C-reactive protein normal. No evidence for soft tissue infection at this time. Did offer to do a CT of her neck just to obtain more information, she initially was agreeable and then became anxious about doing that so that has been canceled for now. I did discuss multiple ways of trying to deal with stress, have encouraged her to see a counselor, have encouraged her to get an emergency dermatology referral for the skin rash issues that she is having in the groin area, have talked to her about exercisie, deep breathing , yoga. Discharge instructions as documented. Departure - Departure Time of Disposition: 18:12 Disposition: Home, Self-Care 01 Condition: Fair Clinical Impression: Neck swelling - Discharge Information Referrals: Jenelle Fuller LEAD RETAIL SALES ASSOCIATE [Primary Care Provider] - Forms: ED Department Discharge Additional Instructions: Try not to touch or irritate area of swelling right neck, there is no evidence for infection today, your white blood count and the other marker checked for infection today were normal. If the swelling does get worse consider using ice packs 2 or 3 times daily. Follow-up with Jenelle at the [facility] Wednesday or Wednesday for recheck. Try hard to get emergency Dermatology referral. Also try hard to see one of our counselors here in [place] to help work through the many stressful issues that you are dealing with at this time. - My Orders Last 24 Hours: My Active Orders 10/08/18 16:54 Soft Tissue Neck w Cont [CT] Stat - Assessment/Plan Last 24 Hours: My Active Orders 10/08/18 16:54 Soft Tissue Neck w Cont [CT] Stat
[2018-10-08 19:28] VITALS: BP 176/86
== END 2018-10-08 18:25 | disposition home or self-care (01) ==
LOC: JD.ED 16:01
DX: R22.1 Localized swelling, mass and lump, neck (principal); I10 Essential (primary) hypertension; F41.9 Anxiety disorder, unspecified; Z79.899 Other long term (current) drug therapy; Z88.2 Allergy status to sulfonamides; Z88.8 Allergy status to other drugs, medicaments and biological substances
CPT/HCPCS: 36415; 80053; 85007; 85027; 86140; 99283

== ENCOUNTER 2019-04-24 14:49 | Emergency (ER) | payer MEDICARE, MEDICAID ==
--- NOTE | 2019-04-24 19:18 | US ---
Right lower extremity deep venous ultrasound: Duplex and color flow imaging was obtained of the right common femoral, greater saphenous, superficial femoral, popliteal, posterior tibial and peroneal veins. Left common femoral vein was also evaluated. Comparison: Previous right lower extremity deep venous ultrasound of 05/01/18. Findings: Superficial thrombophlebitis is seen within the mid greater saphenous vein. This distends the vein in the area of the obstruction. Other veins show normal phasic flow, augmentation and compression. Impression: 1. No evidence of deep venous thrombosis within the right lower extremity or within the left common femoral vein. 2. Findings compatible with superficial thrombophlebitis within the mid greater saphenous vein. Diagnostic code #3
[2019-04-24] MEDS ORDERED: Naproxen 500 MG Tab PO ONE (20:08)
--- NOTE | 2019-04-24 20:15 | EDM.PDOC ---
ED HPI GENERAL MEDICAL PROBLEM - General Chief Complaint: Lower Extremity Injury/Pain Stated Complaint: PAIN AND SWELLING OF VARICOSE VEIN Time Seen by Provider: 04/24/19 17:44 Source of Information: Reports: Patient, RN Notes Reviewed - History of Present Illness INITIAL COMMENTS - FREE TEXT/NARRATIVE: 69-year-old lady comes in with swelling of her right mid medial thigh. She first became aware of this a few days ago. No pain at rest but the area is tender if she pushes on that area. 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 There has been no pain or swelling of her lower leg. No warmth or erythema of the upper or lower leg. no chest pain or difficulty breathing. No recent injury to the leg and no recent surgery. Right Thigh Pain Score (Numeric/FACES): 8 - Related Data Allergies Allergy/AdvReac Type Severity Reaction Status Date / Time RUI Inhibitors Allergy Swollen Verified 10/08/18 16:25 Tongue Sulfa (Sulfonamide Allergy Not Listed Verified 10/08/18 16:25 Antibiotics) Home Meds: Home Meds Atenolol 50 mg PO BID 06/19/15 [History] Zolpidem Tartrate [Ambien] 5 mg PO DAILY 06/19/15 [History] clonazePAM [Clonazepam] 0.125 mg PO DAILY 06/19/15 [History] Norethindrone AC-Eth Estradiol [Jinteli 1 MG-5 MCG] 0.5 tab PO DAILY 11/23/16 [ History] Aspirin [Ecotrin EC] 325 mg PO DAILY 05/01/18 [History] Naproxen [Naprosyn] 500 mg PO Q12HR #30 tab 04/24/19 [Rx] Past Medical History HEENT History: Reports: Impaired Vision Cardiovascular History: Reports: Blood Clots/VTE/DVT, Hypertension Respiratory History: Reports: Other (See Below) Other Respiratory History: emergency tracheotomy 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 Musculoskeletal History: Reports: Fibromyalgia Psychiatric History: Reports: Anxiety Other Endocrine/Metabolic History: parathyroidectomy - Past Surgical History HEENT Surgical History: Reports: Tonsillectomy Respiratory Surgical History: Reports: Tracheostomy GI Surgical History: Reports: Appendectomy, Other (See Below) Other GI Surgeries/Procedures: ovarian cyst removal Female Surgical History: Reports: Oophorectomy Social & Family History - Family History Family Medical History: Noncontributory - Tobacco Use Smoking Status *Q: Never Smoker Second Hand Smoke Exposure: No - Caffeine Use Caffeine Use: Reports: None - Living Situation & Occupation Living situation: Reports: Single Review of Systems - Review of Systems Review Of Systems: See Below Constitutional: Denies: Chills, Diaphoresis, Fever Mouth/Throat: Reports: No Symptoms Respiratory: Denies: Shortness of Breath, Wheezing, Pleuritic Chest Pain, Cough Cardiovascular: Denies: Chest Pain GI/Abdominal: Denies: Abdominal Pain, Nausea, Vomiting Musculoskeletal: Reports: Leg Pain (mild localized) Skin: Reports: Erythema (no distal erythema of lower leg) Neurological: Denies: Numbness, Tingling, Difficulty Walking, Weakness ED EXAM, GENERAL - Physical Exam Exam: See Below General Appearance: Alert, No Apparent Distress Throat/Mouth: Normal Inspection, Normal Oropharynx Head: Atraumatic. No: Facial Swelling Neck: Supple, Full Range of Motion Respiratory/Chest: No Respiratory Distress, Lungs Clear, Normal Breath Sounds Cardiovascular: Regular Rate, Rhythm Extremities: Other (there is an area of mild swelling R medial thigh compatable with localized superfiscial phlebitis with surrounding superfiscial varicosities ). No: Pedal Edema, Leg Pain (lower leg and post knee nontender), Increased Warmth, Redness Neurological: Alert, Oriented, No Motor/Sensory Deficits Course - Vital Signs Last Recorded V/S: Last Vital Signs Temp 98.2 F 04/24/19 16:05 Pulse 72 04/24/19 16:05 Resp 16 04/24/19 16:05 BP Pulse Ox 98 04/24/19 16:05 - Orders/Labs/Meds Labs: Laboratory Tests 04/24/19 04/24/19 04/24/19 Range/Units 18:08 18:08 18:08 WBC 8.91 (3.98-10.04) K/mm3 RBC 4.43 (3.98-5.22) M/mm3 Hgb 14.0 (11.2-15.7) gm/L Hct 41.1 (34.1-44.9) % MCV 92.8 (79.4-94.8) fl MCH 31.6 (25.6-32.2) pg MCHC 34.1 (32.2-35.5) g/dl RDW Std Deviation 42.7 (36.4-46.3) fL Plt Count 226 (182-369) K/mm3 MPV 11.0 (9.4-12.3) fl Neut % (Auto) 50.8 (34.0-71.1) % Lymph % (Auto) 36.5 (19.3-51.7) % Dupage % (Auto) 9.8 (4.7-12.5) % Eos % (Auto) 2.5 (0.7-5.8) Baso % (Auto) 0.2 (0.1-1.2) % Neut # (Auto) 4.53 (1.56-6.13) K/mm3 Lymph # (Auto) 3.25 (1.18-3.74) K/mm3 Dupage # (Auto) 0.87 H (0.24-0.36) K/mm3 Eos # (Auto) 0.22 (0.04-0.36) K/mm3 Baso # (Auto) 0.02 (0.01-0.08) K/mm3 PT 9.9 (9.7-12.0) SECONDS INR < 0.93 Sodium 142 (136-145) mEq/L Potassium 3.7 (3.5-5.1) mEq/L Chloride 105 (98-107) mEq/L Carbon Dioxide 29 (21-32) mEq/L Anion Gap 11.7 (5-15) BUN 19 H (7-18) mg/dL Creatinine 0.7 (0.55-1.02) mg/dL Est Cr Clr Drug Dosing 69.01 mL/min Estimated GFR (MDRD) > 60 (>60) mL/min BUN/Creatinine Ratio 27.1 H (14-18) Glucose 152 H (83-115) mg/dL Calcium 8.9 (8.5-10.1) mg/dL Total Bilirubin 0.7 (0.2-1.0) mg/dL AST 18 (15-37) U/L ALT 37 (14-59) U/L Alkaline Phosphatase 68 (46-116) U/L Total Protein 7.4 (6.4-8.2) g/dl Albumin 3.8 (3.4-5.0) g/dl Globulin 3.6 gm/dL Albumin/Globulin Ratio 1.1 (1-2) Meds: Medications Discontinued Medications Generic Name Dose Route Start Last Admin Trade Name Joselin PRN Reason Stop Dose Admin Naproxen 500 mg 04/24/19 20:08 04/24/19 20:26 Naprosyn PO 04/24/19 20:09 500 mg ONETIME ONE Administration - Re-Assessments/Exams Free Text/Narrative Re-Assessment/Exam: 04/30/19 15:45. US shows a small area of superfiscial thrombophlebitis within the mid greater saphenous vein, see Radiology report for details and also US tech diagram, discharge instr. as documented. Departure - Departure Time of Disposition: 20:18 Disposition: Home, Self-Care 01 Condition: Fair Clinical Impression: Superficial thrombophlebitis - Discharge Information Prescriptions: Naproxen [Naprosyn] 500 mg PO Q12HR #30 tab Instructions: Thrombophlebitis Referrals: Jenelle Fuller MOTORCYCLE SUBASSEMBLY REPAIRER [Primary Care Provider] - Forms: ED Department Discharge Additional Instructions: Warm moist heat 3-4 times daily, Naprosyn 500 mg twice daily, prescription has been sent electronically to [facility]. See Jenelle at the [facility] in 3-4 days, call for appointment, return to ED if symptoms worsening in any way as discussed.
== END 2019-04-24 20:30 | disposition home or self-care (01) ==
LOC: JD.ED 14:49
DX: I80.01 Phlebitis and thrombophlebitis of superficial vessels of right lower extremity (principal); I10 Essential (primary) hypertension; F41.9 Anxiety disorder, unspecified; Z88.2 Allergy status to sulfonamides; Z88.8 Allergy status to other drugs, medicaments and biological substances; Z79.899 Other long term (current) drug therapy; Z79.82 Long term (current) use of aspirin
CPT/HCPCS: 36415; 80053; 85025; 85610; 93971; 99284; A9270

== ENCOUNTER 2019-05-05 15:29 | Emergency (ER) | payer MEDICARE, MEDICAID ==
[2019-05-05 15:43] VITALS: BP 196/86
--- NOTE | 2019-05-05 17:16 | EDM.PDOC ---
ED HPI GENERAL MEDICAL PROBLEM - General Chief Complaint: Lower Extremity Injury/Pain Stated Complaint: RIGHT LEG BLOOD CLOT Time Seen by Provider: 05/05/19 16:10 Source of Information: Reports: Patient, Old Records History Limitations: Reports: No Limitations - History of Present Illness INITIAL COMMENTS - FREE TEXT/NARRATIVE: 69-year-old female presents for a DVT a clot in the right leg. Patient seen in the ER on April 24. She had an ultrasound done and was found have phlebitis. instructed to take naproxen. She was instructed to follow-up. She states that she attempted to follow-up with several providers who refused to order her ultrasound. She followed up with Sco[facility] Brooks on Wednesday. she was able to get an ultrasound of her leg today. She states that she was told by the tech that she has extensive clot and presented to the ER. Reviewed records show that the ultrasound of her right leg shows extension of previous call the great saphenous vein to involve the entire greater saphenous vein on current study. There is also slight extension of clot into the right, forearm vein. Patient did take a 325 mg aspirin today but she has otherwise been holding since April 24. At this time she denies any chest pain, shortness of breath, lightheadedness, dizziness or syncope. Patient reports several lumps to her leg and she is concerned that these are the clot. She also has a tender lump to the right inguinal area is tender. She also reports pain to her right labia. - Related Data Allergies Allergy/AdvReac Type Severity Reaction Status Date / Time RUI Inhibitors Allergy Swollen Verified 05/05/19 15:46 Tongue Sulfa (Sulfonamide Allergy Not Listed Verified 05/05/19 15:46 Antibiotics) Home Meds: Home Meds Atenolol 50 mg PO BID 06/19/15 [History] Zolpidem Tartrate [Ambien] 5 mg PO DAILY 06/19/15 [History] clonazePAM [Clonazepam] 0.125 mg PO DAILY 06/19/15 [History] Norethindrone AC-Eth Estradiol [Jinteli 1 MG-5 MCG] 0.5 tab PO DAILY 11/23/16 [ History] Naproxen [Naprosyn] 500 mg PO Q12HR #30 tab 04/24/19 [Rx] Apixaban [Eliquis] 10 mg PO BID #60 tablet 05/05/19 [Rx] Past Medical History HEENT History: Reports: Impaired Vision Cardiovascular History: Reports: Blood Clots/VTE/DVT, Hypertension Respiratory History: Reports: Other (See Below) Other Respiratory History: emergency tracheotomy 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 Musculoskeletal History: Reports: Fibromyalgia Psychiatric History: Reports: Anxiety Other Endocrine/Metabolic History: parathyroidectomy - Past Surgical History HEENT Surgical History: Reports: Tonsillectomy Respiratory Surgical History: Reports: Tracheostomy GI Surgical History: Reports: Appendectomy, Other (See Below) Other GI Surgeries/Procedures: ovarian cyst removal Female Surgical History: Reports: Oophorectomy Social & Family History - Family History Family Medical History: Noncontributory - Tobacco Use Smoking Status *Q: Never Smoker - Caffeine Use Caffeine Use: Reports: Coffee - Living Situation & Occupation Living situation: Reports: Single Review of Systems - Review of Systems Review Of Systems: See Below Respiratory: Denies: Shortness of Breath Cardiovascular: Denies: Chest Pain, Lightheadedness, Syncope Musculoskeletal: Reports: Leg Pain (right) Skin: Reports: Bruising (right) Neurological: Denies: Dizziness, Syncope Psychiatric: Reports: Anxiety ED EXAM, GENERAL - Physical Exam Exam: See Below Exam Limited By: No Limitations General Appearance: Alert, WD/WN, No Apparent Distress, Anxious Respiratory/Chest: No Respiratory Distress, Lungs Clear, Normal Breath Sounds Cardiovascular: Normal Peripheral Pulses, Regular Rate, Rhythm, No Murmur (Female) Exam: Other (palpable tender right inguinal lymph node; slight erythema to the right labia) Extremities: Normal Inspection (rope like lump to the right anterior thigh) Neurological: Alert, Oriented, Normal Cognition Psychiatric: Normal Affect, Normal Mood Skin Exam: Warm, Dry, Normal Color, Ecchymosis (several bruises to the right anterior superior thigh) Course - Vital Signs Last Recorded V/S: Last Vital Signs Temp 98.0 F 05/05/19 15:37 Pulse 69 05/05/19 15:37 Resp 18 05/05/19 15:37 BP 196/86 H 05/05/19 15:37 Pulse Ox 98 05/05/19 15:37 - Radiology Interpretation Free Text/Narrative:: Right lower extremity deep venous ultrasound: Duplex and color flow imaging was obtained of the right common femoral, proximal greater saphenous, superficial femoral, popliteal, posterior tibial and peroneal veins. Left common femoral vein was also evaluated. Comparison: [facility] venous ultrasound of 04/24/19. Extension of previous clot seen within the greater saphenous vein on the right side. Clot now extends throughout the length of the greater saphenous vein as well as slightly extending into the common femoral vein. Other deep veins of the right lower extremity show normal phasic flow, augmentation and compression. Superficial varicosities are noted. Impression: 1. Extension of previous clot within the greater saphenous vein to involve the entire greater saphenous vein on current study. There is also slight extension of clot into the right common femoral vein. 2. No other venous thrombosis is seen within the right lower extremity or left common femoral vein. - Re-Assessments/Exams Free Text/Narrative Re-Assessment/Exam: 05/05/19 16:[address] Soler. Given involvement of the common femoral patient now require blood thinners. Patient was informed of her ultrasound results from earlier. I'll start her on some eliquis. And have her follow-up in the clinic. Discharge instructions as documented. Departure - Departure Time of Disposition: 17:13 Disposition: Home, Self-Care 01 Condition: Fair Clinical Impression: DVT (deep venous thrombosis), Phlebitis - Discharge Information *PRESCRIPTION DRUG MONITORING PROGRAM REVIEWED*: No *COPY OF PRESCRIPTION DRUG MONITORING REPORT IN PATIENT ELDA: No Prescriptions: Apixaban [Eliquis] 10 mg PO BID #60 tablet Instructions: Phlebitis, [id number], Deep Vein Thrombosis Referrals: Mahad Brooks PA-C [Primary Care Provider] - Forms: ED Department Discharge Additional Instructions: Start the Eliquis. Take 10 mg (2 tabs) twice a day for 7 days then take 5 mg (1 tab) twice a day until directed by her primary care to stop. Normal treatment for DVT is 6 weeks -3 months, however, they may make adjustments depending on how you do. Do not take any NSAIDs such as ibuprofen, Aleve or aspirin with this. start Tylenol as needed for discomfort. Follow up with your primary care provider later next week or early the following week for recheck of your symptoms. Please return to the ER if your symptoms change or worsen.
== END 2019-05-05 17:37 | disposition home or self-care (01) ==
LOC: JD.ED 15:29
DX: I82.411 Acute embolism and thrombosis of right femoral vein (principal); I82.811 Embolism and thrombosis of superficial veins of right lower extremity; S70.11XA Contusion of right thigh, initial encounter; I10 Essential (primary) hypertension; Z88.8 Allergy status to other drugs, medicaments and biological substances; Z88.2 Allergy status to sulfonamides; Z79.01 Long term (current) use of anticoagulants; Z79.899 Other long term (current) drug therapy; X58.XXXA Exposure to other specified factors, initial encounter
CPT/HCPCS: 99283

== ENCOUNTER 2021-08-03 18:14 | Emergency (ER) | payer MEDICARE, MEDICAID ==
[2021-08-03 18:25] VITALS: PULSE 74
--- NOTE | 2021-08-03 18:53 | EDM.PDOC ---
ED HPI GENERAL MEDICAL PROBLEM - General Chief Complaint: ENT Problem Stated Complaint: ENT PROBLEM Time Seen by Provider: 08/03/21 18:25 Source of Information: Reports: Patient History Limitations: Reports: No Limitations - History of Present Illness INITIAL COMMENTS - FREE TEXT/NARRATIVE: 71-year-old female presents the emergency department today with complaints of wax and whistling noted to her bilateral ears. States she was seen by her primary care provider at the clinic on July 07 and told that her ears were so full of wax that her eardrums could not be visualized. Patient was told to use Debrox for 2 weeks and then return the clinic in 4 to 6 weeks for reevaluation. Patient states she has been using the Debrox however she has not noted any wax to come out and she is concerned that when she puts the Debrox in that she does not notice it draining out of her ear. She is wondering if it is going into her eardrum and to her brain. States she has also noted a whistling in her left ear twice today and she is concerned with this as well. She denies any recent fever, chills, nausea, vomiting or diarrhea. She denies any significant ear pain or headache. She denies any dizziness. Left Eye Pain Score (Numeric/FACES): 3 - Related Data Allergies Allergy/AdvReac Type Severity Reaction Status Date / Time RUI Inhibitors Allergy Swollen Verified 08/03/21 18:26 Tongue Sulfa (Sulfonamide Allergy Not Listed Verified 08/03/21 18:26 Antibiotics) Home Meds: Home Meds Zolpidem Tartrate [Ambien] 5 mg PO DAILY 06/19/15 [History] atenoloL [Atenolol] 50 mg PO BID 06/19/15 [History] clonazePAM [Clonazepam] 0.125 mg PO DAILY 06/19/15 [History] DULoxetine [Cymbalta] 20 mg PO DAILY 08/03/21 [History] Past Medical History HEENT History: Reports: Impaired Vision Cardiovascular History: Reports: Blood Clots/VTE/DVT, Hypertension Respiratory History: Reports: Other (See Below) Other Respiratory History: emergency tracheotomy 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 Musculoskeletal History: Reports: Fibromyalgia Psychiatric History: Reports: Anxiety Other Endocrine/Metabolic History: parathyroidectomy - Past Surgical History HEENT Surgical History: Reports: Tonsillectomy Respiratory Surgical History: Reports: Tracheostomy GI Surgical History: Reports: Appendectomy, Other (See Below) Other GI Surgeries/Procedures: ovarian cyst removal Female Surgical History: Reports: Oophorectomy Social & Family History - Family History Family Medical History: No Pertinent Family History - Tobacco Use Tobacco Use Status *Q: Never Tobacco User Second Hand Smoke Exposure: No - Caffeine Use Caffeine Use: Reports: Coffee - Living Situation & Occupation Living situation: Reports: Single ED ROS ENT - Review of Systems Review Of Systems: Comprehensive ROS is negative, except as noted in HPI. ED EXAM, ENT - Physical Exam Exam: See Below Exam Limited By: No Limitations General Appearance: Alert, WD/WN, Anxious Ears: Normal External Exam, Normal Canal, Hearing Grossly Normal, TM Obscured by Cerumen Nose: Normal Inspection, Normal Mucousa Mouth/Throat: Normal Inspection, Normal Lips, Normal Oropharynx Head: Atraumatic, Normocephalic Neck: Normal Inspection, Supple Respiratory/Chest: No Respiratory Distress, No Accessory Muscle Use Cardiovascular: Normal Peripheral Pulses, Regular Rate, Rhythm GI/Abdominal: No Distention (Female) Exam: Deferred Rectal (Female) Exam: Deferred Back: Normal Inspection Extremities: Normal Inspection Neurological: Alert, Oriented, Normal Cognition Psychiatric: Anxious Skin: Warm, Dry, Intact, Normal Color, No Rash Lymphatic: No Adenopathy Course - Vital Signs Text/Narrative:: Physical exam reveals an anxious white female. Attempted to visualize tympanic membranes and bilateral ears however she does have wax noted against both tympanic membranes. We will have nursing staff irrigate the patient's ears and reevaluate. Last Recorded V/S: Last Vital Signs Temp 98.0 F 08/03/21 18:23 Pulse 74 08/03/21 18:23 Resp 20 08/03/21 18:23 BP 170/90 H 08/03/21 19:13 Pulse Ox 100 08/03/21 18:23 - Orders/Labs/Meds Orders: Active Orders 24 hr Category Date Time Status Ear Irrigation [RC] ASDIRECTED Care 08/03/21 18:45 Active - Re-Assessments/Exams Free Text/Narrative Re-Assessment/Exam: 08/03/21 20:29 Nursing staff has cleaned the patient's ears. Tympanic membranes were reassessed and were completely unremarkable. Patient is relieved and states she can hear better. She will be discharged home. She requests to take her wax home in a specimen cup. Departure - Departure Time of Disposition: 20:30 Disposition: Home, Self-Care 01 Condition: Good Clinical Impression: Complaint of wax in ear - Discharge Information Referrals: Marcela Bowles PA-C [Primary Care Provider] - Forms: ED Department Discharge Additional Instructions: You were seen in the emergency department this evening with complaints of wax in your ears and whistling and cracking sound noted. Exam did reveal wax against the tympanic membrane. Nursing staff did clean out your ears. Your eardrums look perfectly normal. There is no sign of infection or anything like that. Recommend using a couple of drops of olive oil a couple of nights a week to keep the ears clean and free of wax. Sepsis Event Note (ED) - Focused Exam Vital Signs: Vital Signs Temp Pulse Resp BP Pulse Ox 08/03/21 19:13 170/90 H 08/03/21 18:23 98.0 F 74 20 100 - My Orders Last 24 Hours: My Active Orders 08/03/21 18:45 Ear Irrigation [RC] ASDIRECTED - Assessment/Plan Last 24 Hours: My Active Orders 08/03/21 18:45 Ear Irrigation [RC] ASDIRECTED
[2021-08-03 19:13] VITALS: BP 170/90
== END 2021-08-03 20:48 | disposition home or self-care (01) ==
LOC: JD.ED 18:14
DX: H61.23 Impacted cerumen, bilateral (principal); I10 Essential (primary) hypertension; Z88.8 Allergy status to other drugs, medicaments and biological substances; Z88.2 Allergy status to sulfonamides
CPT/HCPCS: 69209; 99282; 99283